=== PATIENT | female | born 1995 | race Caucasian/White ===

== ENCOUNTER → 2018-02-05 | Outpatient (CLI) | payer BC ==
[2018-02-05 10:35] LABS: BASO % 0.9 %; BASO ABS # 0.06 K/uL (0-0.2); EOS % 3.7 %; EOS ABS # 0.25 K/uL (0-0.5); HEMATOCRIT 41.9 % (37-47); HEMOGLOBIN 14.7 g/dL (12.0-16.0); IG# 0.03 K/uL (0.00-0.02); LYMPH % 34.9 %; LYMPH ABS # 2.34 K/uL (1.2-3.4); MEAN CELL VOLUME 87.7 fL (80-100); MEAN CORPUSCULAR HEMOGLOBIN 30.8 pg (25-34); MEAN CORPUSCULAR HGB CONC 35.1 g/dl (32-36); MEAN PLATELET VOLUME 10.2 fL (7.4-10.4); MONO % 8.5 %; MONO ABS # 0.57 K/uL (0.11-0.59); NEUT % 51.6 %; NEUT ABS # 3.46 K/uL (1.4-6.5); PLATELET COUNT 333 K/uL (130-400); RED CELL DISTRIBUTION WIDTH SD 38.4 fL (36.4-46.3); WHITE BLOOD COUNT 6.71 K/uL (4.8-10.8)
[2018-02-05 10:45] LABS: ALBUMIN 3.5 gm/dl (3.4-5.0); ALT/SGPT 23 U/L (12-78); AST/SGOT 19 U/L (15-37); BLOOD UREA NITROGEN 12 mg/dl (7-18); CALCIUM 8.9 mg/dl (8.5-10.1); CARBON DIOXIDE 28 mmol/L (21-32); CHOLESTEROL 226 mg/dl (0-200); CREATININE 0.87 mg/dl (0.60-1.20); GLUCOSE 172 mg/dl (70-99); SODIUM 137 mmol/L (136-145)
[2018-02-05 10:55] LABS: ALKALINE PHOSPHATASE 97 U/L (45-117); LDL CHOLESTEROL CALCULATED 123 mg/dl; TOTAL PROTEIN 7.4 gm/dl (6.4-8.2)
== END | disposition home or self-care (01) ==
LOC: C.LABBC 08:45
PROVIDERS: ATTEND Family Medicine
DX: E10.9 Type 1 diabetes mellitus without complications (principal)